=== PATIENT | male | born 1990 | race Caucasian/White ===

== ENCOUNTER 2018-09-06 06:37 | Inpatient (IN) ==
[2018-09-06 07:33] LABS: URINE SOURCE VOIDED
[2018-09-06 07:37] LABS: BASO# 0.03 X1000 (0.0-0.2); BASO% 0.3 % (0.0-0.8); EOS# 0.47 X1000 (0.0-0.7); EOS% 4.3 % (0.0-10.0); HEMATOCRIT 47.8 % (42.0-52.0); HEMOGLOBIN 16.4 g/dL (14.0-18.0); IMM GRAN# 0.03 X1000 (0.0-0.04); IMM GRAN% 0.3 % (0.0-0.5); LYMPH# 2.32 X1000 (1.2-3.4); LYMPH% 21.3 % (20.5-51.1); MCH 30.3 PG (27-31); MCHC 34.3 g/dL (33-37); MCV 88.2 FL (81-99); MONO# 1.03 X1000 (0.11-0.59); MONO% 9.5 % (1.7-9.3); MPV 11.5 FL (7.4-10.4); NEUT# 7.01 X1000 (1.4-6.5); NEUT% 64.3 % (42.2-75.2); PLT 247 X1000 (130-400); RBC 5.42 XMIL (4.7-6.1); RDW 13.2 % (11.5-14.5); WBC 10.89 X1000 (4.8-10.8)
[2018-09-06 07:51] LABS: BILIRUBIN URINE NEGATIVE (NEGATIVE); BLOOD URINE NEGATIVE (NEGATIVE); COLOR YELLOW; GLUCOSE URINE NEGATIVE (NEGATIVE); KETONE URINE NEGATIVE (NEGATIVE); LEUKOCYTES URINE NEGATIVE (NEGATIVE); NITRITE URINE NEGATIVE (NEGATIVE); PH URINE 5.5; PROTEIN URINE NEGATIVE (NEGATIVE); SP GRAVITY URINE 1.002; TURBIDITY URINE CLEAR (CLEAR); UR EPITHELIAL CELLS <10 /HPF (<10); URINE BACTERIA NEGATIVE /HPF; URINE RBC <10 /HPF (<10); URINE WBC <10 /HPF (<10); UROBILINOGEN URINE NORMAL (NORMAL)
[2018-09-06 07:57] LABS: UR AMPHETAMINES QUAL NONE DETECTED (NONE DETECT); UR BARBITUATES QUAL NONE DETECTED (NONE DETECT); UR BENZODIAZEPIN QUAL PRESUMPTIVE POSITIVE (NONE DETECT); UR CANNABINOIDS QUAL NONE DETECTED (NONE DETECT); UR COCAINE QUAL NONE DETECTED (NONE DETECT); UR METHADONE QUAL NONE DETECTED (NONE DETECT); UR OPIATES QUAL NONE DETECTED (NONE DETECT); UR OXYCODONE QUAL NONE DETECTED (NONE DETECT); UR PCP QUAL NONE DETECTED (NONE DETECT)
[2018-09-06 08:01] LABS: AGAP 4; ALB/GLOB RATIO 1.8; ALBUMIN 4.6 g/dL (3.5-5.0); ALKALINE PHOSPHATASE 103 U/L (32-122); BUN 12 mg/dL (8-22); CALCIUM 9.6 mg/dL (8.8-10.2); CHLORIDE 110 mmol/L (98-107); COSMO 290; CREATININE 1.1 mg/dL (0.7-1.2); ESTIMATED GFR > 60; GLUCOSE 88 mg/dL (70-104); GOT 13 U/L (10-34); GPT 16 U/L (10-44); POTASSIUM 4.4 mmol/L (3.5-5.1); SALICYLATES < 3.00 mg/dL (3-10); SODIUM 146 mmol/L (136-145); TCO2 32 mmol/L (25-35); TOTAL BILIRUBIN 0.31 mg/dL (0.20-1.00); TOTAL PROTEIN 7.1 g/dL (6.3-8.3)
--- NOTE | 2018-09-06 08:07 | EKG Report ---
Test Performed on : 09/06/2018 08:00:21 AM Test Reason : OVERDOSE Blood Pressure : / mmHG Vent. Rate : 053 BPM Atrial Rate : 053 BPM P-R Int : 120 ms QRS Dur : 094 ms QT Int : 420 ms P-R-T Axes : 071 065 036 degrees QTc Int : 394 ms Sinus bradycardia. Otherwise normal ECG When compared with ECG of 07-DEC-2011 07:53, No significant change was found Unconfirmed Result
--- NOTE | 2018-09-06 09:59 | Diag Imaging Result Doc PS360 ---
CT HEAD W/O CONTRAST - 09/06/2018 INDICATION: obtunded COMPARISON: 11/24/2013 FINDINGS: There are stable craniectomy changes to the lateral left frontal skull. There are several old areas of encephalomalacia laterally, the dominant one being at the lateral left frontal lobe at the craniectomy site. No intracranial mass or hemorrhage. Mcknight-white matter differentiation is overall well preserved. No skull fracture. The sinuses, mastoids, and middle ears are clear. IMPRESSION: No acute process. No change from prior. This exam was performed using automated exposure control, adjustment of mA or kV according to patient size, and/or use of iterative reconstruction technique Electronically signed by Al Bell 09/06/2018 9:57 AM
[2018-09-06 10:08] LABS: ALLEN TEST YES; BE 0.4 mmoll (-3.0-3.0); BLOOD TYPE ARTERIAL; HCO3-(ACT) 24.9 mmoll (20.0-26.0); METHB 0.9 % (0.0-1.5); O2(CT) 21.2 mL/dL (15.0-23.0); PO2(98.6) 59 mmHg (60-100); SAMPLE BLOOD; SAO2 92.6 % (95.0-100.0); pH(98.6) 7.31 (7.35-7.45)
[2018-09-06 10:09] LABS: MODALITY ROOM AIR
[2018-09-06 10:10] LABS: PCO2(98.6) 56 mmHg (35-45)
--- NOTE | 2018-09-06 10:15 | PROVIDER DOCUMENTATION ---
This chart was entered by Helena Taylor Scribe, acting as scribe for Wilton Taylor MD. [id number] Abuse/Overdose - General Chief Complaint: Altered Mental Status Stated Complaint: ams Time Seen by Provider: 09/06/18 07:48 Source: patient, EMS Allergies/Adverse Reactions: Allergies Allergy/AdvReac Type Severity Reaction Status Date / Time cyclobenzaprine HCl * Allergy Severe ANAPHYLAXIS Verified 08/17/18 12:34 [From Flexeril] tramadol Allergy Severe ANAPHYLAXIS Verified 08/17/18 12:34 cefixime [From Suprax] Allergy Intermediate HIVES Verified 08/17/18 12:34 oxcarbazepine Allergy Intermediate HIVES Verified 08/17/18 12:34 [From Trileptal] Home Medications: Home Medication List Medication Instructions Recorded Confirmed Last Taken Type Buprenorphine/Naloxone S.l. 1 each SL BID #0 tablet 08/25/14 Unknown Rx [Suboxone 8 mg/2 mg] Zolpidem [Ambien] 5 mg PO HS PRN PRN #0 tablet 08/25/14 Unknown Rx Amoxicillin 500 mg PO BID #14 tab 08/17/18 Unknown Rx - History of Present Illness-Drug/Alcohol Nature of Presenting Problem: 28 yom known drug addiction presents to ed with cc of OD. Pt was found by Mother unresponsive and called EMS. Pt on arrival was lethargic and denies any illicit drug use. Pt last suboxone was filled on 08/02/18. Hx of htn and seizures. This episode of drinking or use began:: unsure Severity: reports: moderate Review of Systems - Adult - REVIEW OF SYSTEMS - ADULT Constitutional: reports: other (ams). denies: chills, fever, fatique Eyes: reports: no symptoms reported Ears, Nose, Mouth & Throat: denies: ear pain, sinus problem, throat pain Cardiovascular: reports: no symptoms reported Respiratory: reports: no symptoms reported Gastrointestinal: denies: hematemesis, diarrhea, nausea, vomiting Genitourinary: reports: no symptoms reported Musculoskeletal: reports: no symptoms reported Integumentary: reports: no symptoms reported Neurological: reports: see HPI. denies: dizziness/vertigo, headache/migraines, loss of balance, numbness, paresthesia, seizure, syncope, tremors Psychiatric: reports: no symptoms reported Endocrine: reports: no symptoms reported Hematologic/Lymphatic: reports: no symptoms reported Allergic/Immunologic: reports: no symptoms reported All Other Systems: Reviewed and Negative Past History - Adult - PAST MEDICAL HISTORY-ADULT Review of Records: reports: Nursing Assessment Review, Medications Reviewed Cardiovascular: reports: HTN Neurological: reports: Seizures/Epilepsy - IMMUNIZATION STATUS Childhood Immunizations: See Nurse Assessment Flu Vaccine: See Nurse Assessment - FAMILY HISTORY Family History: reviewed, not pertinent Physical Exam-General - PHYSICAL EXAM-ADULT Initial Vital Signs Reviewed: Yes - CONSTITUTIONAL General Appearance: alert, lethargic, other (sitting up in bed groggy with slurred speech no focal weakness) - EYES Eyes: PERRL/EOMI - HEAD, EARS, NOSE, MOUTH & THROAT HENMT: moist mucous membranes - NECK Neck: non-tender, full range of motion, supple, normal inspection - RESPIRATORY Respiratory: chest non-tender, lungs clear, normal breath sounds, no pleuratic chest pain, no respiratory distress, no accessory muscle use - CARDIOVASCULAR Cardiovascular: regular rate, rhythm, no edema, no gallop, no JVD, no murmur - GASTROINTESTINAL (ABDOMEN) Abdominal Exam: non tender, soft - MUSCULOSKELETAL Back Exam: normal inspection Extremity: normal range of motion, non-tender - SKIN Integumentary: normal color, normal turgor, warm/dry - NEUROLOGIC Neurologic: other (pt is sitting up in bed but is groggy with slurry speech). negative: facial droop, focal weakness, motor weakness, sensory deficit - PSYCHIATRIC Psych/Mental Status: negative: normal mood/affect Progress - PLAN OF CARE/RESULTS Progress/Plan/Lab Results: Vital Signs - 8 hr 09/06/18 06:51 09/06/18 07:10 09/06/18 07:12 Temperature 98.3 F Pulse Rate Respiratory Rate 18 Blood Pressure 120/73 109/65 O2 Sat by Pulse Oximetry 98 99 99 09/06/18 07:20 09/06/18 07:30 09/06/18 07:32 Temperature Pulse Rate Respiratory Rate Blood Pressure 96/57 O2 Sat by Pulse Oximetry 98 97 97 09/06/18 07:40 09/06/18 07:50 09/06/18 08:00 Temperature Pulse Rate Respiratory Rate Blood Pressure O2 Sat by Pulse Oximetry 95 96 96 09/06/18 08:02 09/06/18 08:10 09/06/18 08:20 Temperature Pulse Rate 61 63 Respiratory Rate 9 L Blood Pressure 112/64 O2 Sat by Pulse Oximetry 99 96 95 09/06/18 08:30 09/06/18 08:32 09/06/18 08:40 Temperature Pulse Rate 63 62 64 Respiratory Rate 9 L 9 L 9 L Blood Pressure 126/84 O2 Sat by Pulse Oximetry 95 95 95 09/06/18 08:50 09/06/18 09:00 Temperature Pulse Rate 69 64 Respiratory Rate 12 10 L Blood Pressure O2 Sat by Pulse Oximetry 97 99 Laboratory Results - last 24 hr 09/06/18 09/06/18 09/06/18 06:46 06:46 06:46 WBC 10.89 H RBC 5.42 Hgb 16.4 Hct 47.8 MCV 88.2 MCH 30.3 MCHC 34.3 RDW Std Deviation 13.2 Plt Count 247 MPV 11.5 H Immature Gran % (Auto) 0.3 Neut % (Auto) 64.3 Lymph % (Auto) 21.3 [place] % (Auto) 9.5 H Eos % (Auto) 4.3 Baso % (Auto) 0.3 Immature Gran # (Auto) 0.03 Neut # (Auto) 7.01 H Lymph # (Auto) 2.32 [place] # (Auto) 1.03 H Eos # (Auto) 0.47 Baso # (Auto) 0.03 Specimen Type Sample Site pH pCO2 pO2 HCO3 Base Excess Oxyhemoglobin ABG O2 Sat (Calculated) ABG O2 Saturation ABG Carboxyhemoglobin ABG Methemoglobin Rafiq Test A-a O2 Difference Total Hemoglobin Lactate Blood Gas Modality FiO2 % Sodium Potassium Chloride Carbon Dioxide Anion Gap BUN Creatinine Estimated GFR/1.73 m2 BUN/Creatinine Ratio Glucose POC Glucose Calculated Osmolality Calcium Total Bilirubin AST ALT Alkaline Phosphatase Total Protein Albumin Globulin Albumin/Globulin Ratio Urine Source Urine Color Urine Turbidity Urine pH Ur Specific [place] Urine Protein Ur Glucose (Stick) Ur Ketones (Stick) Urine Blood Urine Nitrite Urine Bilirubin Urobilinogen Dipstick Urine Leukocytes Urine WBC (Auto) Urine RBC (Auto) U Epithel Cells (Auto) Urine Bacteria (Auto) Salicylates Urine Opiates Screen Ur Oxycodone Screen Ur Methadone, Qual Acetaminophen < 1.2 L Ur Barbiturates Screen Ur Phencyclidine Scrn Ur Amphetamines Screen U Benzodiazepines Scrn Urine Cocaine Screen U Cannabinoids Screen Plasma/Serum Ethyl Alc 0209/06/18 09/06/18 06:46 07:11 07:11 WBC RBC Hgb Hct MCV MCH MCHC RDW Std Deviation Plt Count MPV Immature Gran % (Auto) Neut % (Auto) Lymph % (Auto) [place] % (Auto) Eos % (Auto) Baso % (Auto) Immature Gran # (Auto) Neut # (Auto) Lymph # (Auto) [place] # (Auto) Eos # (Auto) Baso # (Auto) Specimen Type Sample Site pH pCO2 pO2 HCO3 Base Excess Oxyhemoglobin ABG O2 Sat (Calculated) ABG O2 Saturation ABG Carboxyhemoglobin ABG Methemoglobin Rafiq Test A-a O2 Difference Total Hemoglobin Lactate Blood Gas Modality FiO2 % Sodium 146 H Potassium 4.4 Chloride 110 H Carbon Dioxide 32 Anion Gap 4 BUN 12 Creatinine 1.1 Estimated GFR/1.73 m2 > 60 BUN/Creatinine Ratio 11 Glucose 88 POC Glucose Calculated Osmolality 290 Calcium 9.6 Total Bilirubin 0.31 AST 13 ALT 16 Alkaline Phosphatase 103 Total Protein 7.1 Albumin 4.6 Globulin 2.5 Albumin/Globulin Ratio 1.8 Urine Source VOIDED Urine Color YELLOW Urine Turbidity CLEAR Urine pH 5.5 Ur Specific [place] 1.002 Urine Protein NEGATIVE Ur Glucose (Stick) NEGATIVE Ur Ketones (Stick) NEGATIVE Urine Blood NEGATIVE Urine Nitrite NEGATIVE Urine Bilirubin NEGATIVE Urobilinogen Dipstick NORMAL Urine Leukocytes NEGATIVE Urine WBC (Auto) <10 Urine RBC (Auto) <10 U Epithel Cells (Auto) <10 Urine Bacteria (Auto) NEGATIVE Salicylates < 3.00 L Urine Opiates Screen NONE DETECTED Ur Oxycodone Screen NONE DETECTED Ur Methadone, Qual NONE DETECTED Acetaminophen Ur Barbiturates Screen NONE DETECTED Ur Phencyclidine Scrn NONE DETECTED Ur Amphetamines Screen NONE DETECTED U Benzodiazepines Scrn PRESUMPTIVE POSITIVE A Urine Cocaine Screen NONE DETECTED U Cannabinoids Screen NONE DETECTED Plasma/Serum Ethyl Alc 09/06/18 09/06/18 08:07 09:55 WBC RBC Hgb Hct MCV MCH MCHC RDW Std Deviation Plt Count MPV Immature Gran % (Auto) Neut % (Auto) Lymph % (Auto) [place] % (Auto) Eos % (Auto) Baso % (Auto) Immature Gran # (Auto) Neut # (Auto) Lymph # (Auto) [place] # (Auto) Eos # (Auto) Baso # (Auto) Specimen Type ARTERIAL Sample Site R RADIAL pH 7.31 L pCO2 56 H* pO2 59 L HCO3 24.9 Base Excess 0.4 Oxyhemoglobin 89.0 L* ABG O2 Sat (Calculated) 21.2 ABG O2 Saturation 92.6 L ABG Carboxyhemoglobin 3.00 H ABG Methemoglobin 0.9 Rafiq Test YES A-a O2 Difference 21.0 Total Hemoglobin 17.0 Lactate 0.80 Blood Gas Modality ROOM AIR FiO2 % 21.0 Sodium Potassium Chloride Carbon Dioxide Anion Gap BUN Creatinine Estimated GFR/1.73 m2 BUN/Creatinine Ratio Glucose POC Glucose 99 Calculated Osmolality Calcium Total Bilirubin AST ALT Alkaline Phosphatase Total Protein Albumin Globulin Albumin/Globulin Ratio Urine Source Urine Color Urine Turbidity Urine pH Ur Specific [place] Urine Protein Ur Glucose (Stick) Ur Ketones (Stick) Urine Blood Urine Nitrite Urine Bilirubin Urobilinogen Dipstick Urine Leukocytes Urine WBC (Auto) Urine RBC (Auto) U Epithel Cells (Auto) Urine Bacteria (Auto) Salicylates Urine Opiates Screen Ur Oxycodone Screen Ur Methadone, Qual Acetaminophen Ur Barbiturates Screen Ur Phencyclidine Scrn Ur Amphetamines Screen U Benzodiazepines Scrn Urine Cocaine Screen U Cannabinoids Screen Plasma/Serum Ethyl Alc Orders Category Date Time Status Cardiac Monitoring DIRECTED Care 09/06/18 07:21 Active CHEST-PORTABLE [RAD] Stat Exams 09/06/18 09:[address] HEAD W/O CONTRAST [CT] Stat Exams 09/06/18 09:36 Completed ABG [RESP] Routine Lab 09/06/18 09:55 Completed ACETAMINOPHEN [TDM] Stat Lab 09/06/18 06:46 Completed ALCOHOL BLOOD Stat Lab 09/06/18 06:46 Completed CBC WITH ELECTRONIC DIFF [HEME] Stat Lab 09/06/18 06:46 Completed COMPREHENSIVE METABOLIC PANEL [CHEM] Stat Lab 09/06/18 06:46 Completed FOLATE Stat Lab 09/06/18 09:41 Ordered SALICYLATES [TDM] Stat Lab 09/06/18 06:46 Completed TSH Timed Lab 09/06/18 09:41 Ordered URINALYSIS [URINALYSIS] Stat Lab 09/06/18 07:11 Completed URINE DRUG SCREEN Stat Lab 09/06/18 07:11 Completed VITAMIN B12 Stat Lab 09/06/18 09:41 Ordered Overdose (suspected) Stat Oth 09/06/18 07:21 Ordered EKG [EKG] Stat Ther 09/06/18 07:21 Draft Result Diagrams: 09/06/18 06:46 09/06/18 06:46 - CONSULTS/PCP/HOSPITALIST Notification #1 *Consult/PCP/Hospitalist*: GRISELDA FOR DR RUFFIN Consult Disposition: Admit (ICU) Departure - Departure Date of Disposition Decision: 09/06/18 Time of Disposition Decision: 09:37 DIAGNOSIS: Acute drug overdose Disposition: ADMITTED INPATIENT 09 Certified Medical Emergency: Emergent Condition: Fair Referrals and Follow-Ups: None,PCP [Primary Care Provider] - - Critical Care Note This patient required my direct & personal management of CC.: Yes Total Time (mins): 25 Critical Care Statement: This patient required my direct personal management to treat or rule out processes, the absence of which, could potentiallly result in sudden, clinically significant life or limb threatening deterioration. Attestation - Physician/ OLIVA Attestation Patient care was provided by Advanced Practice Provider:: No The physician spent face to face time with patient:: Yes Advanced Practice Provider documentation review:: Supervising physician onsite and consulted in the evaluation and care of this patient. The physician did have a face to face encounter with the patient. This chart was documented by the indicated scribe, (Helena Taylor Scribe) and accurately reflects the services I performed and decisions made by me, Wilton Taylor MD, as attested by the provider's signature.
[2018-09-06] MEDS ORDERED: NS 1,000 ML IV ONE (10:24)
[2018-09-06] MEDS ORDERED: DUONEB (A & A) INH PRN (10:24)
--- NOTE | 2018-09-06 10:28 | Diag Imaging Result Doc PS360 ---
CHEST-PORTABLE - 09/06/2018 INDICATION: obtunded, drug OD COMPARISON: 12/07/2011 FINDINGS: The lungs are normally expanded and clear. Heart size and mediastinal contours are normal. No pneumothorax or pleural effusion. IMPRESSION: Negative exam. Electronically signed by Al Bell 09/06/2018 10:25 AM
[2018-09-06] MEDS ORDERED: SODIUM CHLORIDE 0.9% INJ SCH (10:30)
[2018-09-06] MEDS: DUONEB (A & A) INH SCH ×2 (11:16→15:12)
--- NOTE | 2018-09-06 11:30 | ED EKG INTERP ---
This chart was entered by Nisa Goodwin Scribe, acting as scribe for Wilton Taylor MD. EKG Interpretation - EKG Time of EKG reading by physician:: 08:00 EKG Read and Signed by:: Wilton Taylor EKG Interpretation (*Must complete 3 of following elements*): Abnormal Rate: 53 Rhythm: sinus bradycardia [place]: normal PA Interval: normal Comments: otherwise normal ECG Attestation - Physician/ OLIVA Attestation The physician spent face to face time with patient:: Yes Advanced Practice Provider documentation review:: Supervising physician onsite and consulted in the evaluation and care of this patient. The physician did have a face to face encounter with the patient. This chart was documented by the indicated scribe, (Nisa Goodwin Scribe) and accurately reflects the services I performed and decisions made by me, Wilton Taylor MD, as attested by the provider's signature.
[2018-09-06 11:59] LABS: TSH 2.59 uIUmL (0.27-4.20)
[2018-09-06] MEDS: PROTONIX IV SCH (12:23)
[2018-09-06] MEDS: M.V.I.-12 10 ML, FOLIC ACID 1 MG, MAGNESIUM SULFATE 1 GM, THIAMINE 100 MG in NS 1,000 ML IV SCH (13:23)
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
[2018-09-06] MEDS ORDERED: NICODERM PATCH TD ONE (17:37)
[2018-09-06] MEDS ORDERED: GEODON IM ONE (17:38)
[2018-09-06] MEDS ORDERED: STERILE WATER INJ. INJ ONE (17:38)
[2018-09-06] MEDS ORDERED: ATIVAN IM ONE (17:38)
[2018-09-06 17:55] LABS: ALLEN TEST YES; BE 0.2 mmoll (-3.0-3.0); BLOOD TYPE ARTERIAL; METHB 1.3 % (0.0-1.5); O2(CT) 22.5 mL/dL (15.0-23.0); O2HB 94.1 % (95.0-99.0); PCO2(98.6) 42 mmHg (35-45); PO2(98.6) 78 mmHg (60-100); SAMPLE BLOOD; SAO2 97.2 % (95.0-100.0); pH(98.6) 7.39 (7.35-7.45)
[2018-09-06 17:57] LABS: MODALITY ROOM AIR
[2018-09-06] MEDS ORDERED: TYLENOL PO PRN (23:59)
[2018-09-07] MEDS ORDERED: MOTRIN PO ONE
[2018-09-07] MEDS ORDERED: DESYREL PO ONE (00:13)
[2018-09-07 00:55] VITALS: BP 134/87
[2018-09-07 07:11] LABS: BASO# 0.02 X1000 (0.0-0.2); BASO% 0.2 % (0.0-0.8); EOS% 6.4 % (0.0-10.0); HEMATOCRIT 46.5 % (42.0-52.0); HEMOGLOBIN 15.7 g/dL (14.0-18.0); MCH 30.1 PG (27-31); MCHC 33.8 g/dL (33-37); MCV 89.3 FL (81-99); MONO# 0.86 X1000 (0.11-0.59); MONO% 9.2 % (1.7-9.3); MPV 11.4 FL (7.4-10.4); NEUT# 5.04 X1000 (1.4-6.5); NEUT% 54.2 % (42.2-75.2); PLT 217 X1000 (130-400); RBC 5.21 XMIL (4.7-6.1); RDW 13.1 % (11.5-14.5); WBC 9.32 X1000 (4.8-10.8)
--- NOTE | 2018-09-07 07:19 | Diag Imaging Result Doc PS360 ---
EXAM: CHEST-PORTABLE HISTORY: Resp failure TECHNIQUE: Chest single view COMPARISON: 09/06/2018 FINDINGS: The lungs are well expanded. The heart is not enlarged. The vessels are not distended. There are no infiltrates. No effusion identified. IMPRESSION: Negative exam. Electronically signed by Russ Carrion 09/07/2018 7:16 AM
[2018-09-07 07:38] LABS: AGAP 9; BUN 12 mg/dL (8-22); CALCIUM 8.9 mg/dL (8.8-10.2); CHLORIDE 106 mmol/L (98-107); COSMO 285; ESTIMATED GFR > 60; GLUCOSE 96 mg/dL (70-104); POTASSIUM 3.7 mmol/L (3.5-5.1); SODIUM 143 mmol/L (136-145); TCO2 28 mmol/L (25-35)
[2018-09-07] MEDS ORDERED: LOVENOX SUBQ SCH (09:00)
[2018-09-07] MEDS: M.V.I.-12 10 ML, FOLIC ACID 1 MG, MAGNESIUM SULFATE 1 GM, THIAMINE 100 MG in NS 1,000 ML IV SCH (09:35)
[2018-09-07] MEDS: PROTONIX IV SCH (10:50)
--- NOTE | 2018-09-15 20:21 | DISCHARGE SUMMARY ---
ADMISSION DATE: 09/06/2018 DISCHARGE DATE: 09/07/2018 DISPOSITION: Home. FOLLOWUP: Chiki Reed MD. CONSULTATION: During this admission, none. IMAGING STUDIES OF SIGNIFICANCE: 1. CT scan of the chest shows no acute process. 2. A chest x-ray on admission was negative. A repeat chest x-ray continued to be negative. PCO2 on admission was 56, at discharge was 42. ADMISSION DIAGNOSES: 1. Acute benzodiazepine overdose. 2. Respiratory depression with hypercarbia. 3. Recreational drug-induced encephalomalacia. 4. Nicotine dependence. DISCHARGE DIAGNOSES: 1. Altered mental status secondary to drug overdose. Presumably benzodiazepines. 2. Hypercarbic respiratory failure. 3. History of recreational drug abuse. 4. Nicotine dependence. DISCHARGE MEDICATION: Suboxone 8 mg sublingual b.i.d. PRESENTING COMPLAINT: Altered mental status. HISTORY OF PRESENTING COMPLAINT: Mr. Bacon is a 28-year-old, male, with a history of polysubstance abuse in the past including inhalant abuse leading into alveolar hemorrhage, multiple brain abscesses, came to the emergency department because of altered mental status. The mother was at the bedside. She gave a history that she is suspecting patient has been using benzodiazepine at home. Upon presentation, urine toxicology was positive for benzodiazepines. The patient was admitted for further medical care. HOSPITAL COURSE: Mr. Bacon was placed on BiPAP immediately because of the hypercarbia. He did improve over the course overnight. Mentation got better and the following morning, he was able to eat. He was a little bit emotional about the fact that he has tried to get his life together, but it is hard. He has been given a referral to follow up with [facility] in [place] with Dr. Reed if he is willing to go on long-term medication addiction program. All the discharge instructions were discussed with him and he voiced understanding. TIME SPENT FOR DISCHARGE: Was 36 minutes. cc: MD Chiki Cheney MD
== END 2018-09-07 14:59 | disposition home or self-care (01) | DRG 917 ==
LOC: SUPCPDRO → ED 06:37 → EDIPHOLD 10:57
PROVIDERS: ATTEND Internal Medicine
CPT/HCPCS: 70450; 71010; 71045; 80048; 80053; 80101; 80196; 80301; 80307; 80320; 80324; 80329; 80345; 80346; 80353; 80358; 80361; 80365; 81001; 82003; 82055; 82607; 82746; 82805; 82948; 83735; 83992; 84443; 85025; 93005; 94640; 94762; 96361; 96372; 96374; 96375; 96376; 99285; A9270; C9113; G0431; G0434; G0479; G0480; G6038; G6039; G6040; J1650; J2060; J3411; J3475; J3486; J7030; S0164; XXXXX

== ENCOUNTER 2019-02-27 17:09 | Inpatient (IN) ==
[2019-02-27] MEDS ORDERED: IMODIUM PO PRN ×2 (17:27)
[2019-02-27] MEDS ORDERED: NICOTINE GUM BUCCAL PRN (17:27)
[2019-02-27] MEDS ORDERED: ZOFRAN ODT PO PRN (17:27)
[2019-02-27] MEDS ORDERED: MAALOX PLUS LIQUID PO PRN (17:27)
[2019-02-27] MEDS ORDERED: MOTRIN PO PRN (17:27)
[2019-02-27] MEDS ORDERED: TUBERSOL ID ONE (17:27)
[2019-02-27] MEDS ORDERED: D5W 1,000 ML IV PRN (17:27)
[2019-02-27] MEDS ORDERED: TYLENOL PO PRN (17:27)
[2019-02-27] MEDS ORDERED: DULCOLAX PR PRN (17:27)
[2019-02-27] MEDS ORDERED: PHENOBARBITAL IV PRN (17:27)
[2019-02-27] MEDS ORDERED: DESYREL PO PRN (17:27)
[2019-02-27] MEDS ORDERED: SENOKOT PO PRN (17:27)
[2019-02-27] MEDS ORDERED: ZOFRAN IV PRN (17:27)
[2019-02-27] MEDS ORDERED: ZOFRAN IM PRN (17:27)
[2019-02-27] MEDS ORDERED: NICODERM PATCH TD PRN (17:27)
[2019-02-27] MEDS ORDERED: ATARAX PO PRN (17:35)
[2019-02-27] MEDS ORDERED: BENTYL PO PRN (17:35)
[2019-02-27] MEDS ORDERED: SINEMET 25/100 PO PRN (17:35)
[2019-02-27 18:05] LABS: HEMATOCRIT 43.7 % (42.0-52.0); HEMOGLOBIN 15.4 g/dL (14.0-18.0); MCH 31.2 PG (27-31); MCHC 35.2 g/dL (33-37); MCV 88.6 FL (81-99); MPV 10.8 FL (7.4-10.4); RBC 4.93 XMIL (4.7-6.1); RDW 12.7 % (11.5-14.5); WBC 9.39 X1000 (4.8-10.8)
[2019-02-27 18:13] LABS: URINE SOURCE VOIDED
[2019-02-27 18:23] LABS: AGAP 10; ALBUMIN 4.7 g/dL (3.5-5.0); ALKALINE PHOSPHATASE 96 U/L (32-122); AMYLASE 77 U/L (20-200); BUN 11 mg/dL (8-22); CALCIUM 9.1 mg/dL (8.8-10.2); CHLORIDE 101 mmol/L (98-107); COSMO 273; CREATININE 0.9 mg/dL (0.7-1.2); ESTIMATED GFR > 60; GLUCOSE 86 mg/dL (70-104); GOT 13 U/L (10-34); GPT 11 U/L (10-44); LIPASE 60 U/L (13-60); POTASSIUM 3.9 mmol/L (3.5-5.1); SODIUM 137 mmol/L (136-145); TCO2 26 mmol/L (25-35); TOTAL PROTEIN 7.4 g/dL (6.3-8.3)
[2019-02-27 18:35] LABS: BILIRUBIN URINE NEGATIVE (NEGATIVE); BLOOD URINE NEGATIVE (NEGATIVE); CLARITY CLEAR (CLEAR); COLOR YELLOW; GLUCOSE URINE NEGATIVE (NEGATIVE); KETONE URINE NEGATIVE (NEGATIVE); LEUKOCYTES URINE NEGATIVE (NEGATIVE); NITRITE URINE NEGATIVE (NEGATIVE); PROTEIN URINE NEGATIVE (NEGATIVE); UROBILINOGEN URINE NORMAL
[2019-02-27 18:36] LABS: UR AMPHETAMINES QUAL NONE DETECTED (NONE DETECT); UR BARBITUATES QUAL NONE DETECTED (NONE DETECT); UR BENZODIAZEPIN QUAL NONE DETECTED (NONE DETECT); UR CANNABINOIDS QUAL PRESUMPTIVE POSITIVE (NONE DETECT); UR COCAINE QUAL NONE DETECTED (NONE DETECT); UR METHADONE QUAL NONE DETECTED (NONE DETECT); UR METHAMPHETAMINE QUAL NONE DETECTED (NONE DETECT); UR OPIATES QUAL NONE DETECTED (NONE DETECT); UR OXYCODONE QUAL PRESUMPTIVE POSITIVE (NONE DETECT); UR PCP QUAL NONE DETECTED (NONE DETECT); UR PROPOXYPHENE QUAL NONE DETECTED (NONE DETECT); UR TCA QUAL NONE DETECTED (NONE DETECT)
[2019-02-27] MEDS: ROBAXIN PO PRN (18:41)
[2019-02-27] MEDS: LIBRIUM PO PRN ×2 (18:41→22:53)
--- NOTE | 2019-02-27 19:13 | HISTORY AND PHYSICAL ---
CHIEF COMPLAINT: Nausea, vomiting. HISTORY OF PRESENT ILLNESS: The patient is a 29-year-old male who [facility] secondary to nausea, vomiting, abdominal pain, myalgias, fevers. Notes that he has been having subjective chills. Denies cough, congestion. Denies headaches. States he has been off heroin for approximately a year, but has started re-abusing pills. He knows that is not going to be able to stay sober on his own. SOCIAL HISTORY: Patient is single. He is self-employed. He does have a child on the way. Lives at home in [place]. 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 MEDICATIONS: Prozac 40. ALLERGIES: No known drug allergies. REVIEW OF SYSTEMS: CINA score is 19 secondary to nausea, vomiting, abdominal pain, myalgias, watery eyes, runny nose, frequent sweating, hot and cold chills, feels feverish at times. Denies headaches, blurry vision, change in vision. Denies any focalized numbness, tingling, or weakness in his extremities. Denies any dysuria, frequency, urgency. Denies hesitancy, polyuria, or polydipsia. SUBSTANCE ABUSE HISTORY: The patient was in the [employer] in 2018, where he was kicked out for use. He was in [employer] and stayed sober for 4-6 months. At one point in 2018, he was in [facility] until he was kicked out for using. In 2019 through the present, he has been to [facility] for counseling. He started drinking at 14, had not drank in a month. Started marijuana 14, has not used in a month. Started stimulants at 15, has not used in a month, but was using meth IV. He has inhaled from age 14 until about 9 years ago, different inhalants. He started heroin at 14. Notes that he has been clean off of that for several days, until just recently. He had only been abusing Percocet, but recently started abusing heroin again. Notes that he dips. States that he is tired of this life and has a baby on the way. He has to get his life back under control. FAMILY HISTORY: Noncontributory. PHYSICAL EXAMINATION: VITAL SIGNS: Reviewed. He is awake and alert. He is in no respiratory distress. HEENT: Normocephalic. NECK: Supple. CARDIOVASCULAR: Regular rate. CHEST: Clear. ABDOMEN: Soft. EXTREMITIES: Moves all extremities. NEUROLOGIC: No focal changes. SKIN: Warm, dry. No rash. ASSESSMENT: 1. Nausea, vomiting. 2. Abdominal pain. 3. Myalgias. 4. Paresthesias. 5. Paroxysmal sweating. 6. Opiate abuse withdrawal and stabilization. 7. Chronic tobacco abuse. 8. Chronic anxiety/depression. PLAN: Discussed with the patient that he needs to avoid persons, places, situations in which he has been using and abusing. We will start him on Subutex, begin counseling. Further symptomatic medications as needed. cc: Chiki Reed MD
[2019-02-27] MEDS: SEROQUEL PO PRN (22:53)
[2019-02-28] MEDS: PROTONIX PO SCH (06:14)
[2019-02-28] MEDS: THERA M PLUS PO SCH (08:26)
[2019-02-28] MEDS: LIBRIUM PO PRN ×4 (08:26→22:50)
[2019-02-28] MEDS: VITAMIN B-1 PO SCH (08:26)
[2019-02-28] MEDS: ROBAXIN PO PRN ×3 (08:26→22:50)
[2019-02-28] MEDS: FOLIC ACID PO SCH (08:26)
[2019-02-28] MEDS: SUBOXONE 2 MG/0.5 MG FILM SL SCH ×2 (09:28→20:57)
[2019-02-28] MEDS: PROZAC PO SCH (09:28)
[2019-02-28] MEDS ORDERED: M.V.I.-12 10 ML, FOLIC ACID 1 MG, MAGNESIUM SULFATE 1 GM, THIAMINE 100 MG in NS 1,000 ML IV ONE (10:00)
[2019-02-28] MEDS ORDERED: SUBOXONE 2 MG/0.5 MG FILM SL SCH (10:00)
--- NOTE | 2019-02-28 19:20 | PROGRESS NOTE ---
DATE: 02/28/2019 SUBJECTIVE: Patient notes he is feeling okay. Still having lots of muscle aches and abdominal pain, but seems to be getting better. He did sleep a little bit last night. PHYSICAL EXAMINATION: Vital Signs: Reviewed. Patient is awake. He is in no distress. Temperature 97.6 degrees, pulse 50, respiratory rate 18, BP 91/43 to 108/58. General: Patient is awake and alert. He is currently in no distress. HEENT: Normocephalic. Neck: Supple. Cardiovascular: Regular rate. Chest: Clear and nonlabored. Abdomen: Soft. Extremities: Moves all extremities. ASSESSMENT: 1. Nausea and vomiting. 2. Abdominal pain. 3. Myalgias. 4. Paresthesias. 5. Paroxysmal sweating. 6. Opiate withdrawal and stabilization. PLAN: Will continue patient in the hospital. Continue Suboxone. Continue symptomatic treatment. Further orders as needed. cc: Chiki Reed MD
[2019-02-28] MEDS: SEROQUEL PO PRN (22:50)
[2019-03-01] MEDS: PROTONIX PO SCH (06:24)
[2019-03-01 08:21] VITALS: BP 133/79
[2019-03-01] MEDS: PROZAC PO SCH (09:33)
[2019-03-01] MEDS: VITAMIN B-1 PO SCH (09:33)
[2019-03-01] MEDS: LIBRIUM PO PRN (09:33)
[2019-03-01] MEDS: THERA M PLUS PO SCH (09:33)
[2019-03-01] MEDS: FOLIC ACID PO SCH (09:33)
[2019-03-01] MEDS: SUBOXONE 2 MG/0.5 MG FILM SL SCH (09:33)
[2019-03-01] MEDS ORDERED: SUBOXONE 2 MG/0.5 MG FILM SL ONE (10:45)
[2019-03-01 14:44] LABS: HEPATITIS PROFILE ACUTE SEE COMMENTS
[2019-03-01] MEDS ORDERED: SUBOXONE 8 MG/2 MG FILM SL SCH (21:00)
--- NOTE | 2019-03-02 03:00 | DISCHARGE SUMMARY ---
ADMISSION DATE: 02/27/2019 DISCHARGE DATE: 03/01/2019 DISCHARGE DIAGNOSIS: 1. Nausea, vomiting, abdominal pain. 2. Myalgias. 3. Paresthesias. 4. Opiate withdrawal and stabilization. 5. Others. CONSULTATIONS: None. PROCEDURES: None. BRIEF HOSPITAL COURSE: Patient is a 29-year-old male who presented to the hospital with increased nausea, vomiting, abdominal pain, myalgias, paresthesias. He has been noted to be abusing opiates again. We will admit him to the hospital, place him on Suboxone, begin counseling. Thankfully, he had an uneventful hospital course. His dose did have to increase to 8/2 to completely alleviate his symptoms, but on discharge patient notes that he is feeling tremendously better. DISPOSITION: Patient will be discharged home. Discussed with him that he needs to avoid all persons, places, situations in which he has been using and abusing in the past. He needs outpatient life counseling as well as drug counseling. He is to follow up outpatient with treatment facility of choice. Prescription for Suboxone was written. cc: Chiki Reed MD
== END 2019-03-01 15:19 | disposition home or self-care (01) | DRG 897 ==
LOC: P.MEDSURG 17:09
PROVIDERS: ADMIT Family Medicine; ATTEND Family Medicine